=== PATIENT | male | born 1985 | race African-American/Black ===

== ENCOUNTER 2016-10-27 15:06 | Emergency (ER) | payer OTHER ==
[~2016-10-27] VITALS: Ht 180.3 cm; Wt 78.0 kg
[~2016-10-27 15:06] MED LIST: ACETAMINOPHEN-1 EAC1; ACTICIN 5% CREA60 G1 TOP; ALLERGY RELIEF180 MG PO; BACTRIM DS TAB1 EACH PO; BENADRYL25 MG PO; HYDROCODON-ACE1 EAC7; HYDROXYZINE HCL25 M1 PO; IBUPROFEN 600600 M1 PO; IBUPROFEN 800800 MG PO; KEFLEX500 MG PO; NOHOMEMEDICATIONS; NORCO 5-325 TA1 EACH PO; PENICILLIN V P500 MG PO; PREDNISONE 10 M10 MG PO; PREDNISONE 20 M20 MG PO; PREDNISONE50 MG PO; PROAIR HFA8.5 GM IH; TRAMADOL 50 MG50 MG PO; VALIUM2 MG PO; ZOFRAN ODT4 MG PO; ZPAK PO; ZYRTEC10 MG PO; [UNRECOGNIZED DRUG - OTHER] TP
[2016-10-27 15:08] VITALS: BP 101/67
[2016-10-27] MEDS ORDERED: KEFLEX500 MG PO (15:17)
== END 2016-10-27 15:35 | disposition home or self-care (01) ==
LOC: ER 15:06
DX: L73.9 Follicular disorder, unspecified (principal); J45.909 Unspecified asthma, uncomplicated; F12.10 Cannabis abuse, uncomplicated; Z87.891 Personal history of nicotine dependence

== ENCOUNTER 2017-01-08 13:35 | Emergency (ER) | payer OTHER ==
[~2017-01-08] VITALS: Ht 180.3 cm; Wt 81.7 kg
[2017-01-08 13:36] VITALS: BP 107/66
[2017-01-08] MEDS ORDERED: CLEOCIN HCL300 MG PO (14:18)
== END 2017-01-08 14:24 | disposition home or self-care (01) ==
LOC: ER 13:35
DX: L73.9 Follicular disorder, unspecified (principal); J45.909 Unspecified asthma, uncomplicated; F10.99 Alcohol use, unspecified with unspecified alcohol-induced disorder; F12.10 Cannabis abuse, uncomplicated; Z87.891 Personal history of nicotine dependence

== ENCOUNTER 2018-06-21 09:15 | Emergency (ER) | payer OTHER ==
[~2018-06-21] VITALS: Ht 185.4 cm; Wt 81.7 kg
[~2018-06-21 09:15] MED LIST changes: +CLEOCIN HCL300 MG PO
[2018-06-21 09:16] VITALS: BP 113/80
[2018-06-21] MEDS ORDERED: CORTISPORIN OTI10 ML OTIC (09:55)
== END 2018-06-21 09:55 | disposition home or self-care (01) ==
LOC: ER 09:15
DX: H92.02 Otalgia, left ear (principal); F17.210 Nicotine dependence, cigarettes, uncomplicated; J45.909 Unspecified asthma, uncomplicated

== ENCOUNTER 2018-06-25 12:27 | Emergency (ER) | payer OTHER ==
[~2018-06-25] VITALS: Ht 185.4 cm; Wt 81.7 kg
[~2018-06-25 12:27] MED LIST changes: +CORTISPORIN OTI10 ML OTIC
[2018-06-25] MEDS ORDERED: CIPRO500 MG PO (13:13)
[2018-06-25 13:30] VITALS: BP 104/66
== END 2018-06-25 13:31 | disposition home or self-care (01) ==
LOC: ER 12:27
DX: H60.92 Unspecified otitis externa, left ear (principal); J45.909 Unspecified asthma, uncomplicated; Z87.891 Personal history of nicotine dependence

== ENCOUNTER 2018-08-12 20:11 | Emergency (ER) | payer OTHER ==
[~2018-08-12] VITALS: Ht 182.9 cm; Wt 82.6 kg
[~2018-08-12 20:11] MED LIST changes: +CIPRO500 MG PO
[2018-08-12 20:28] VITALS: BP 122/74
[2018-08-12] MEDS ORDERED: NORCO 10-325 T1 EACH PO (20:32)
[2018-08-12] MEDS ORDERED: MOTRIN IB200 M2 PO (20:32)
== END 2018-08-12 21:34 | disposition home or self-care (01) ==
LOC: ER 20:11
DX: S40.862A Insect bite (nonvenomous) of left upper arm, initial encounter (principal); S40.861A Insect bite (nonvenomous) of right upper arm, initial encounter; S10.86XA Insect bite of other specified part of neck, initial encounter; S20.369A Insect bite (nonvenomous) of unspecified front wall of thorax, initial encounter; S20.469A Insect bite (nonvenomous) of unspecified back wall of thorax, initial encounter; J45.909 Unspecified asthma, uncomplicated; Z87.891 Personal history of nicotine dependence; Z91.018 Allergy to other foods; W57.XXXA Bitten or stung by nonvenomous insect and other nonvenomous arthropods, initial encounter; Y93.89 Activity, other specified; Y92.89 Other specified places as the place of occurrence of the external cause; Y99.8 Other external cause status

== ENCOUNTER 2020-02-21 07:52 | Emergency (ER) | payer BC, OTHER ==
[~2020-02-21] VITALS: Ht 185.4 cm; Wt 81.7 kg
[~2020-02-21 07:52] MED LIST changes: +MOTRIN IB200 M2 PO; +NORCO 10-325 T1 EACH PO
[2020-02-21 08:07] VITALS: BP 108/73
[2020-02-21] MEDS ORDERED: PENICILLIN VK500 MG PO (08:29)
== END 2020-02-21 08:54 | disposition home or self-care (01) ==
LOC: ER 07:52
DX: J02.9 Acute pharyngitis, unspecified (principal); J45.909 Unspecified asthma, uncomplicated; Z87.891 Personal history of nicotine dependence; Z91.018 Allergy to other foods

== ENCOUNTER 2020-04-10 17:41 | Emergency (ER) | payer BC, OTHER ==
[~2020-04-10] VITALS: Ht 182.9 cm; Wt 83.0 kg
[~2020-04-10 17:41] MED LIST changes: +PENICILLIN VK500 MG PO
[2020-04-10] MEDS ORDERED: KEFLEX500 M1 PO (19:59)
[2020-04-10 20:00] VITALS: BP 114/63
== END 2020-04-10 20:03 | disposition home or self-care (01) ==
LOC: ER 17:41
DX: L05.01 Pilonidal cyst with abscess (principal); Z79.2 Long term (current) use of antibiotics; Z91.018 Allergy to other foods; Z87.891 Personal history of nicotine dependence